=== PATIENT | female | born 1945 | race Caucasian/White ===

== ENCOUNTER 2021-03-24 13:51 | Emergency (ER) | payer OTHER ==
[~2021-03-24] VITALS: Ht 160 cm; Wt 61.2 kg
[~2021-03-24 13:51] MED LIST: METFORMIN HCL1000 MG; SYNTHROID50 MCG; ZESTRIL20 MG
== END 2021-03-24 15:50 | disposition home or self-care (01) ==
LOC: ER 13:51
DX: S46.812A Strain of other muscles, fascia and tendons at shoulder and upper arm level, left arm, initial encounter (principal); W54.8XXA Other contact with dog, initial encounter; Y93.89 Activity, other specified; Y92.89 Other specified places as the place of occurrence of the external cause; Y99.8 Other external cause status